=== PATIENT | female | born 1990 | race African-American/Black ===

== ENCOUNTER 2017-09-09 05:58 | Day surgery (SDC) | payer SELFPAY ==
[2017-08-27 14:20] VITALS: BMI 25.2
[2017-09-09] MEDS ORDERED: EPINEPHrine/PF 1 MG/1 ML (1:1,000) AMPULE ONE ×2 (07:27→08:15)
[2017-09-09] MEDS ORDERED: LIDOCAINE HCL 1%, 10 MG/ML (20ML VIAL) ONE ×2 (07:27→08:15)
[2017-09-09] MEDS ORDERED: PROPOFOL 20 ML ONE ×2 (07:46→11:50)
[2017-09-09] MEDS ORDERED: MIDAZOLAM HCL 2 MG/2 ML SINGLE DOSE VIAL ONE (07:46)
[2017-09-09] MEDS ORDERED: SUCCINYLCHOLINE CHLORIDE 200 MG/10 ML VIAL ONE (07:46)
[2017-09-09] MEDS ORDERED: ROCURONIUM BROMIDE 50 MG/5 ML VIAL ONE ×2 (08:07→09:24)
[2017-09-09] MEDS ORDERED: ceFAZolin SODIUM 1 GM VIAL ONE (08:29)
[2017-09-09] MEDS ORDERED: BACITRACIN 15 GM TUBE TOPICAL OINTMENT ONE ×2 (09:07→11:04)
[2017-09-09] MEDS ORDERED: ONDANSETRON 4 MG/2 ML VIAL ONE ×2 (09:27→11:33)
[2017-09-09] MEDS ORDERED: DEXAMETHASONE SOD PHOSPHATE 4 MG/1 ML VIAL ONE (09:27)
[2017-09-09] MEDS ORDERED: ACETAMINOPHEN INJECTION 100 ML IVPB ONE (11:03)
[2017-09-09] MEDS ORDERED: NEOSTIGMINE METHYLSULFATE 0.5 MG/ML - 10 ML MDV ONE (11:32)
[2017-09-09] MEDS ORDERED: GLYCOPYRROLATE 0.2 MG/1 ML VIAL ONE (11:33)
[2017-09-09] MEDS ORDERED: oxyCODONE HCL 5 MG TABLET PO PRN ×3 (11:59→12:04)
[2017-09-09] MEDS ORDERED: ONDANSETRON 4 MG/2 ML VIAL IVPUSH PRN (11:59)
[2017-09-09] MEDS ORDERED: LACTATED RINGERS SOLUTION 1,000 ML IV SCH ×2 (12:00→12:15)
[2017-09-09] MEDS ORDERED: ONDANSETRON 4 MG/2 ML VIAL IVPB PRN (12:04)
--- NOTE | 2017-09-09 12:07 | OP ---
Operative Note - Note: Operative Date: 09/09/17 Pre-Operative Diagnosis: trunk adiposity Operation: liposuctio to trunk Post-Operative Diagnosis: Same as Pre-op Surgeon: Dax Andrew Anesthesia: General Operative Report Dictated: Yes
[2017-09-09 13:41] VITALS: TEMP 97.9
[2017-09-09 16:02] VITALS: BP 145/85; PULSE 84
--- NOTE | 2017-09-09 21:52 | OP ---
DATE OF OPERATION: 09/09/2017 TITLE OF PROCEDURE: Liposuction to bilateral flanks, abdomen, and bilateral upper back. ATTENDING SURGEON: Govind Webster MD ASSISTANTS: None. ANESTHESIA: General endotracheal. PREOPERATIVE DIAGNOSIS: Truncal adiposity. POSTOPERATIVE DIAGNOSIS: Truncal adiposity. The patient is seen in the holding area. She is marked. She is aware of all potential incisions and resulting scars. It was discussed with the patient that to do a more thorough liposuction on her posterior side, prone positioning would be required which would length the duration of the procedure. Patient had the option to avoid this and do the entire operation supine. However, she elected to have the prone operation for and understood the financial consequences. The patient is given DAVID hose and sequential compression devices in the holding area. She is brought to the operating room. She is then given anesthesia and intubated on her stretcher. She is positioned in a prone position. Surgical and anesthesia and nursing teams are all involved with all pressure points carefully padded. She is then prepped and draped in standard surgical fashion. Two grams of Ancef were given preoperatively, and a timeout is called. Patient, procedure, sides, and sites are verified. At this point, wetting solution is infiltrated. It should be noted that the wetting solution for this case is a liter of normal saline with 1 ampule of 1:1000 epinephrine and 20 mL of 1% lidocaine plain. This is the solution for the first 3 L. The second 2 L are without lidocaine. On the posterior, 2100 mL of wetting solution is infiltrated. A full 25 minutes is awaited prior to any further action. The SAFE technique of liposuction is performed with pre- and post-tunneling using a 4-mL basket-tipped cannula for preparation and post-liposuction smoothing. After this is completed, which is performed through the entirety of the operative zone, the liposuction was then performed with a combination of 5, 4, and 3-mm cannulas. Power-assisted liposuction is performed with the [employer] system. The liposuction aspirates are as follows: The left flank 475 mL, the right flank 450 mL, the left upper back 175 mL, the right upper back 175 mL. There is an additional 100 mL miscellaneous liposuction aspirate on the back. The endpoint is a smooth even contour without distortion and the lysis of the restricting dermal ligaments creating the appearance of back rolls. The liposuction incisions were 1-cm incisions in various locations. These are closed with interrupted 4-0 nylon suture, dressed with gauze pads and Tegaderm dressings. Pinch test is used to assess the smoothness. A minimal amount of blood is seen in the liposuction aspirate. Drapes are then removed. Patient is then transferred into a supine position back onto the stretcher and then transferred from the stretcher back onto the operative table in a supine position. Position is carefully checked once again by surgical and anesthesia teams. She is prepped and draped in standard surgical fashion once again, and the procedure is repeated with first tumescent infiltration to the abdomen. A total of 2800 mL of infiltration is used. A full 25 minutes is awaited for the effect of the wetting solution. After which, the same SAFE technique of liposuction is performed. The liposuction aspirates were 1000 mL from the lower abdomen, 275 mL from the right side of the abdomen including additional right flank, 350 mL from the left side of the abdomen including the left flank, the upper abdomen 550 mL, and an additional miscellaneous from the abdomen was 500 mL. The total liposuction aspirate for this case is 4.2 L. Endpoint is smooth even contour, the appearance of some blood within the liposuction aspirate, and even pinch test throughout the abdomen. Once again, the SAFE technique is employed with pre- and post-tunneling with a 4-mm basket-tip cannula. The incisions are closed with a series of interrupted 4-0 nylon suture. There is 1 incision on the left side of the abdomen that is not within the panty line or the umbilicus, and that is closed with 5-0 nylon. The incisions at the umbilicus are left open to drain. Dressings are placed with eye patches and Tegaderm. An abdominal binder is applied. Patient is awoken from anesthesia without complication. GOVIND WEBSTER M.D. [id number]
== END 2017-09-09 16:00 | disposition home or self-care (01) ==
LOC: FASU 05:58
PROVIDERS: ATTEND Plastic Surgery
PROC: 0J073ZZ Alteration of Back Subcutaneous Tissue and Fascia, Percutaneous Approach (ICD-10-PCS; 2017-09-09)
PROC: 0J083ZZ Alteration of Abdomen Subcutaneous Tissue and Fascia, Percutaneous Approach (ICD-10-PCS; principal; 2017-09-09 08:40)
DX: Z41.1 Encounter for cosmetic surgery (principal)
CPT/HCPCS: 84703; 94760; J0131

== ENCOUNTER 2020-02-05 14:55 | Day surgery (SDC) | payer SELFPAY ==
[2020-02-02 11:26] VITALS: BMI 24.5
[~2020-02-05 14:55] MED LIST: BACITRACIN 15 GM TUBE TOPICAL OINTMENT ONE; BENZOIN/ALOE VERA/STORAX/TOLU 58 ML BOTTLE ONE; BUPIVACAINE HCL/PF 0.25% (2.5MG/ML) 10 ML VIAL ONE; BUPIVACAINE LIPOSOME/PF (EXPAREL) 266 MG/20 ML VIAL ONE; DEXAMETHASONE SOD PHOSPHATE 4 MG/1 ML VIAL ONE; EPINEPHrine/PF 1 MG/1 ML (1:1,000) AMPULE ONE; GLYCOPYRROLATE 0.2 MG/1 ML VIAL ONE; LIDOCAINE HCL 1%, 10 MG/ML (20ML VIAL) ONE; MIDAZOLAM HCL 2 MG/2 ML SINGLE DOSE VIAL ONE; NEOSTIGMINE METHYLSULFATE 0.5 MG/ML - 10 ML MDV ONE; NITROGLYCERIN 2% OINTMENT - 1GM PACKET TD ONE; ONDANSETRON 4 MG/2 ML VIAL IVPB PRN; ONDANSETRON 4 MG/2 ML VIAL IVPUSH PRN; ONDANSETRON 4 MG/2 ML VIAL ONE; PROPOFOL 20 ML ONE; ROCURONIUM BROMIDE 50 MG/5 ML SYRINGE ONE; SUCCINYLCHOLINE CHLORIDE 200 MG/10 ML SYRINGE ONE; ceFAZolin SODIUM 1 GM VIAL ONE; fentaNYL CITRATE 250 MCG/5 ML VIAL ONE
[2020-02-05] MEDS: CEFAZOLIN 1 GM/D5W 1 GM/50 ML BAG IVPB SCH ×2 (16:53→21:54)
[2020-02-05] MEDS: DEXAMETHASONE SOD PHOSPHATE 10 MG/1 ML VIAL IVPB SCH (22:35)
[2020-02-06] MEDS: CEFAZOLIN 1 GM/D5W 1 GM/50 ML BAG IVPB SCH ×2 (03:06→08:18)
[2020-02-06] MEDS ORDERED: HEPARIN NA (PORCINE) 5,000 UNITS/ML 1ML VIAL SQ SCH (08:00)
[2020-02-06] MEDS: DEXAMETHASONE SOD PHOSPHATE 10 MG/1 ML VIAL IVPB SCH (10:11)
[2020-02-06 11:12] VITALS: BP 120/71; PULSE 90; TEMP 98.1
== END 2020-02-06 13:35 | disposition home or self-care (01) ==
LOC: FASUSAT 14:55 → FM/S 14:55 → FASUSAT 02-06 13:35
PROVIDERS: ATTEND Plastic Surgery
PROC: 0J0M3ZZ Alteration of Left Upper Leg Subcutaneous Tissue and Fascia, Percutaneous Approach (ICD-10-PCS; 2020-02-05)
PROC: 0J093ZZ Alteration of Buttock Subcutaneous Tissue and Fascia, Percutaneous Approach (ICD-10-PCS; principal; 2020-02-05 08:36)
PROC: 0J0L3ZZ Alteration of Right Upper Leg Subcutaneous Tissue and Fascia, Percutaneous Approach (ICD-10-PCS; 2020-02-05 08:36)
DX: Z41.1 Encounter for cosmetic surgery (principal)
CPT/HCPCS: 81025; 94760; J1100; J1644